=== PATIENT | male | born 1980 | race African-American/Black ===

== ENCOUNTER → 2020-08-19 | Outpatient (CLI) | payer OTHER ==
[~2020-08-19] MED LIST: MULTIPLE VITAMI1 CAP PO
== END ==
LOC: MHCPAIN 14:27
DX: M54.31 Sciatica, right side (principal); M47.817 Spondylosis without myelopathy or radiculopathy, lumbosacral region; M54.5 Low back pain; M53.3 Sacrococcygeal disorders, not elsewhere classified; G89.29 Other chronic pain; M54.16 Radiculopathy, lumbar region
CPT/HCPCS: G0463

== ENCOUNTER → 2020-08-20 | Outpatient (CLI) | payer OTHER | LOC: MHCPAIN 13:11 | DX: M47.817 Spondylosis without myelopathy or radiculopathy, lumbosacral region (principal); M54.16 Radiculopathy, lumbar region | CPT/HCPCS: J1100; Q9967 ==

== ENCOUNTER → 2020-09-07 | Outpatient (CLI) | payer OTHER | LOC: MHCPAIN 10:20 | DX: M47.817 Spondylosis without myelopathy or radiculopathy, lumbosacral region (principal); M53.3 Sacrococcygeal disorders, not elsewhere classified; G89.29 Other chronic pain; M54.16 Radiculopathy, lumbar region | CPT/HCPCS: G0463 ==